=== PATIENT | female | born 1980 | race Caucasian/White ===

== ENCOUNTER 2017-07-10 19:51 | Emergency (ER) | payer OTHER ==
[2017-07-10 19:59] VITALS: BP 128/87
[2017-07-10] MEDS ORDERED: KETOROLAC 60 MG/2 ML VIAL IM STA (21:20)
--- NOTE | 2017-07-10 21:22 | ED Physician Documentation ---
PD HPI LOWER EXT INJURY - Stated complaint Stated Complaint: L LEG PX - Chief complaint Chief Complaint: Ext Problem - History obtained from History obtained from: Patient, Friend - History of Present Illness PD HPI LOW EXT INJURY LOCATION: Left, Lower leg, Calf Type of injury: Twist Where injury occurred: Home Timing - onset: How many hours ago (2) Timing - details: Abrupt onset, Still present Improved by: Immobilization Worsened by: Moving, Palpating Associated symptoms: No: Numbness, Tingling, Swelling Contributing factors: No: Anticoagulated, Prior ortho surgery Similar symptoms before: Has not had sx before Recently seen: Not recently seen - Additional information Additional information: Patient is a 37 year old female who is presenting to the emergency department for calf pain. patient had been drinking and was getting up out of a chair. Patient took a few steps and states that she heard a pop and had calf pain so came in for evaluation. Patient denied any falls, or any trauma at this time. Review of Systems Constitutional: denies: Fever, Chills Eyes: denies: Decreased vision Ears: denies: Ear pain, Drainage/discharge Nose: reports: Reviewed and negative Throat: reports: Reviewed and negative Cardiac: denies: Chest pain / pressure, Palpitations Respiratory: denies: Cough GI: denies: Nausea, Vomiting : denies: Vaginal bleeding Skin: denies: Rash, Lesions, Abrasion (s) Musculoskeletal: reports: Extremity pain, Pain with weight bearing. denies: Extremity swelling, Joint swelling Neurologic: denies: Focal weakness, Numbness Immunocompromised: denies: Immunocompromised PD PAST MEDICAL HISTORY - Past Medical History Past Medical History: Yes Psych: Depression - Past Surgical History Past Surgical History: Yes Ortho: Arthroscopic surgery /EPILEPSY PHYSICIAN: section, Dilation and currettage - Present Medications Home Medications: Ambulatory Orders Medication Instructions Recorded Confirmed Control 07/10/17 Cyclobenzaprine [Flexeril] 10 mg PO TID PRN #7 tablet 07/10/17 FLUoxetine [PROzac] 10 mg PO DAILY 07/10/17 07/10/17 - Allergies Allergies/Adverse Reactions: Allergies Allergy/AdvReac Type Severity Reaction Status Date / Time methocarbamol [From Robaxin] Allergy Anaphylaxis Verified 07/10/17 19:59 - Social History Does the pt smoke?: No Smoking Status: Never smoker Does the pt drink ETOH?: Yes Does the pt have substance abuse?: No - Immunizations Immunizations are current?: Yes PD ED PE NORMAL - Vitals Vital signs reviewed: Yes - General General: Alert and oriented X 3, No acute distress - HEENT HEENT: Atraumatic, PERRL - Neck Neck: Supple, no meningeal sign, No bony TTP - Cardiac Cardiac: RRR, No murmur - Respiratory Respiratory: No respiratory distress - Abdomen Abdomen: Non distended - Derm Derm: Normal color, Warm and dry, No rash - Neuro Neuro: Alert and oriented X 3, No motor deficit, No sensory deficit, Normal speech PD ED PE EXPANDED - Extremities Extremities: Left leg (tenderness and palpation) - Psych Psych: Intoxicated / AOB Results - Vitals Vitals: Vital Signs - 24 hr 07/10/17 19:56 Temperature 36.5 C Heart Rate 61 Respiratory 16 Rate Blood Pressure 128/87 H O2 Saturation 100 Oxygen O2 Source Room air PD MEDICAL DECISION MAKING - ED course Complexity details: reviewed old records, reviewed results, re-evaluated patient , considered differential, d/w patient ED course: Patient was seen and examined at bedside. Patient had calf tenderness but no signs of Achilles tendon rupture. Patient was treated with toradol. Patient required no imaging at this time and was stable for discharge with outpatient follow up. Departure - Departure Disposition: 01 Home, Self Care Clinical Impression: Strain of gastrocnemius muscle of left lower extremity Condition: Good Instructions: ED Strain Muscle Ext Follow-Up: primary,care kenny [Other] - Within 1 week Prescriptions: Cyclobenzaprine [Flexeril] 10 mg PO TID PRN #7 tablet PRN Reason: Spasms Comments: You likely pulled your calf muscle. You should take motrin or tylenol as needed for pain. You can take a muscle relaxer, but do not mix it with alcohol or other sedatives. You cannot drive or operate heavy machinery while taking it. You should ice the area and keep it elevated. You can wrap it as necessary for continued comfort. You should follow up with your pmd if your pain persists for more than a week. Discharge Date/Time: 07/10/17 21:48
[2017-07-10] MEDS ORDERED: KETOROLAC 60 MG/2 ML VIAL ONE (21:34)
== END 2017-07-10 21:48 | disposition home or self-care (01) ==
LOC: ED 19:51
DX: S86.812A Strain of other muscle(s) and tendon(s) at lower leg level, left leg, initial encounter (principal); X58.XXXA Exposure to other specified factors, initial encounter; Y92.009 Unspecified place in unspecified non-institutional (private) residence as the place of occurrence of the external cause
CPT/HCPCS: 96372; 99283